=== PATIENT | male | born 1995 | race African-American/Black ===

== ENCOUNTER 2017-04-30 19:54 | Emergency (ER) | payer OTHER ==
[2017-04-30 20:06] VITALS: BP 156/86; PULSE 97; RESP 18; TEMP 98.3
--- NOTE | 2017-04-30 21:11 | ED ---
General Adult HPI - General Chief complaint: Recheck/Abnormal Lab/Rx Stated complaint: wants allergy Rx Time Seen by Provider: 04/30/17 20:39 Source: patient, RN notes reviewed, old records reviewed Mode of arrival: ambulatory Limitations: no limitations - History of Present Illness Initial comments: This is a 22 year old male with CC of needing allergy medication. Patient reports that he has been taking Claritin but it has not been working. He does not use nasal sprays. Patient reports he has itchy eyes, and nasal drainage. Patient denies any fever or chills. Denies any nausea, vomiting, chest pain, shortness of breath, abdominal pain. - Related Data Previous Rx's Medication Instructions Recorded Loratadine [Claritin] 10 mg PO DAILY #30 tab 05/27/15 guaiFENesin SYRUP 100MG/5ML 100 mg PO Q6HR PRN #1 bottle 05/27/15 [Robitussin] Fexofenadine HCl 180 mg PO DAILY #20 tablet 04/30/17 Fluticasone Nasal [place] [Flonase 1 spray EA NOSTRIL DAILY #1 bottle 04/30/17 Nasal [place]] Loratadine [Claritin] 10 mg PO DAILY #20 tab 04/30/17 Allergies Allergy/AdvReac Type Severity Reaction Status Date / Time No Known Allergies Allergy Verified 04/30/17 20:06 Review of Systems ROS Statement: Those systems with pertinent positive or pertinent negative responses have been documented in the HPI. ROS Other: All systems not noted in ROS Statement are negative. Past Medical History Past Medical History: No Reported History History of Any Multi-Drug Resistant Organisms: None Reported Past Surgical History: No Surgical Hx Reported Past Psychological History: No Psychological Hx Reported Smoking Status: Never smoker Past Alcohol Use History: None Reported Past Drug Use History: None Reported General Exam - General Exam Comments Initial Comments: This is a 22 year old male. Patient does not appear to be in any acute distress. Limitations: no limitations General appearance: alert, in no apparent distress Head exam: Present: atraumatic, normocephalic, normal inspection Eye exam: Present: normal appearance, PERRL, EOMI. Absent: scleral icterus, conjunctival injection, periorbital swelling ENT exam: Present: normal exam, mucous membranes moist, other (erythematous nasal turbinates. ) Neck exam: Present: normal inspection. Absent: tenderness, meningismus, lymphadenopathy Respiratory exam: Present: normal lung sounds bilaterally. Absent: respiratory distress, wheezes, rales, rhonchi, stridor Cardiovascular Exam: Present: regular rate, normal rhythm, normal heart sounds. Absent: systolic murmur, diastolic murmur, rubs, gallop, clicks GI/Abdominal exam: Present: soft, normal bowel sounds. Absent: distended, tenderness, guarding, rebound, rigid Extremities exam: Present: normal inspection, full ROM, normal capillary refill. Absent: tenderness, pedal edema, joint swelling, calf tenderness Back exam: Present: normal inspection Neurological exam: Present: alert, oriented X3, CN II-XII intact Psychiatric exam: Present: normal affect, normal mood Skin exam: Present: warm, dry, intact, normal color. Absent: rash Course Vital Signs 04/30/17 20:03 Temperature 98.3 F Pulse Rate 97 Respiratory 18 Rate Blood Pressure 156/86 O2 Sat by Pulse 98 Oximetry Medical Decision Making - Medical Decision Making This is a 22 year old male with CC of needing allergy medication refill. Patient reports that he has been taking Claritin but it has not been working. He does not use nasal sprays. Patient reports he has itchy eyes, and nasal drainage. Patient has erythematous nasal turbinates. Vital signs are within normal limits. Lungs are clear. Patient will be started on Claritin D and also written for generic Glory. Discussed that patient needs to be on fluticasone nasal spray as well. Patient advised to monitor for fever, or any alarming signs or symptoms. Disposition Clinical Impression: Seasonal allergies Disposition: HOME SELF-CARE Condition: Good Instructions: Allergies (ED) Additional Instructions: Patient advised to alternate between the loratadine fexofenadine prescription. Use the nasal spray. Return to the emergency department if any alarming signs or symptoms occur. Prescriptions: Fexofenadine HCl 180 mg PO DAILY #20 tablet Fluticasone Nasal [place] [Flonase Nasal [place]] 1 spray EA NOSTRIL DAILY #1 bottle Loratadine [Claritin] 10 mg PO DAILY #20 tab Referrals: Marin Espinoza MD [Primary Care Provider] - 1-2 days Time of Disposition: 21:09
== END 2017-04-30 21:10 | disposition home or self-care (01) ==
LOC: EC 19:54
DX: J30.2 Other seasonal allergic rhinitis (principal); Z76.0 Encounter for issue of repeat prescription
CPT/HCPCS: 99282

== ENCOUNTER 2017-08-13 19:24 | Emergency (ER) | payer OTHER ==
[2017-08-13] MEDS ORDERED: SODIUM CHLORIDE 0.9% 1,000 ML IV STA ×2 (19:40→20:53)
[2017-08-13] MEDS ORDERED: ONDANSETRON 4 MG/2 ML VIAL IVP STA ×2 (19:40→20:53)
--- NOTE | 2017-08-13 19:46 | ED ---
General Adult HPI - General Chief complaint: Abdominal Pain Stated complaint: Abd Pain Time Seen by Provider: 08/13/17 19:34 Source: patient, RN notes reviewed Mode of arrival: ambulatory Limitations: no limitations - History of Present Illness Initial comments: This is a 22-year-old male who presents to the emergency department with chief complaint of abdominal pain. Patient states that yesterday he had generalized body aches. He reports that at approximately 12:00/1:00 this afternoon he began to have abdominal pain. He states that the pain was a dull ache in his perimbilical region and has since migrated to the left. He states that the dull pain is constant with intermittent sharp pains. Patient states that he has also been experiencing nausea and diarrhea, however has not had any episodes of vomiting. He states that he has been able to keep down fluids throughout the day. Patient states that he has also felt alternating periods of warm and cold. He denies any sick contacts. Patient denies any medical problems, ALLERGIES or surgeries. Denies chest pain, shortness of breath, vomiting, constipation, dysuria or hematuria, numbness or tingling, headache or vision changes. - Related Data Home Medications Medication Instructions Recorded Confirmed Fluticasone Nasal [place] [Flonase 1 spray EA NOSTRIL DAILY PRN 08/13/17 08/13/17 Nasal [place]] Loratadine [Claritin] 10 mg PO DAILY PRN 08/13/17 08/13/17 Allergies Allergy/AdvReac Type Severity Reaction Status Date / Time No Known Allergies Allergy Verified 08/13/17 19:47 Review of Systems ROS Statement: Those systems with pertinent positive or pertinent negative responses have been documented in the HPI. ROS Other: All systems not noted in ROS Statement are negative. Past Medical History Past Medical History: No Reported History History of Any Multi-Drug Resistant Organisms: None Reported Past Surgical History: No Surgical Hx Reported Past Psychological History: No Psychological Hx Reported Smoking Status: Never smoker Past Alcohol Use History: None Reported Past Drug Use History: None Reported General Exam - General Exam Comments Initial Comments: General: Awake and alert, well-developed; in no apparent distress. HEENT: Head atraumatic, normocephalic. Pupils are equal, round and reactive to light. Extraocular movements intact. Oropharynx moist without erythema or exudate. Neck: Supple. Normal ROM. Cardiovascular: Regular rate and rhythm. No murmurs, rubs or gallops. Chest symmetrical. Respiratory: Lungs clear to auscultation bilaterally. No wheezes, rales or rhonchi. Normal respiratory effort with no use of accessory muscles. Abdomen: Soft, non-distended. Mild tenderness on palpation of periumbilical region. No rigidity, rebound or guarding. Normal bowel sounds in all 4 quadrants. Musculoskeletal: Normal ROM, no tenderness bilateral upper and lower extremities. Ambulating normally. Skin: [place], warm and dry without rashes or lesions. Neurological: Alert and oriented x3. CN II-XII grossly intact. Speech is fluent and answers are appropriate. No focal neuro deficits. Psychiatric: Normal mood and affect. No overt signs of depression or anxiety noted. Limitations: no limitations Course Vital Signs 08/13/17 08/13/17 19:29 20:53 Temperature 99.2 F Pulse Rate 89 90 Respiratory 20 18 Rate Blood Pressure 137/76 116/53 O2 Sat by Pulse 100 100 Oximetry Medical Decision Making - Medical Decision Making This is a 22-year-old male who presents to the emergency department with chief complaint of abdominal pain. Patient does not appear to be acutely ill. On presentation, vital signs are stable with a slightly elevated temperature of 99.2. X-ray abdomen revealed an overall non-obstructive bowel gas pattern, however small air-fluid levels in the right colon could represent ileus or enteritis. Patient initially refused blood work and IV line. After educating patient that we will have a better picture of his diagnosis with blood work, patient agreed. Patient has slight increase in his white count at 12.3 with a left shift. Patient has slightly elevated liver enzymes with an ALT of 86 and alkaline phosphatase of 127. Patient denied having any abdominal pain in the right lower quadrant or right upper quadrant. On reexamination patient states that he feels significantly better. He states that his nausea has dissipated and on palpation of his abdomen he denies any tenderness. Recommended CT of abdomen as the next step in management. Patient states that he will return to the emergency department if symptoms should worsen. No computed tomography scan will be performed at this time. Patient is in no acute distress. Vitals were repeated and current temperature is 98.8. All other vitals are stable. Patient will be discharged home. He is in agreement with [facility] understanding. All questions were answered. - Lab Data Result diagrams: 08/13/17 20:52 08/13/17 20:52 Lab Results 08/13/17 08/13/17 08/13/17 Range/Units 20:52 20:52 21:41 WBC 12.3 H (4.0-11.0) k/uL RBC 5.58 (4.30-5.90) m/uL Hgb 14.8 (13.0-17.5) gm/dL Hct 44.2 (39.0-53.0) % MCV 79.2 L (80.0-100.0) fL MCH 26.4 (25.0-35.0) pg MCHC 33.4 (31.0-37.0) g/dL RDW 13.5 (11.5-15.5) % Plt Count 284 (150-450) k/uL Neutrophils % 84 % Lymphocytes % 11 % Monocytes % 3 % Eosinophils % 1 % Basophils % 0 % Neutrophils # 10.3 H (1.3-7.7) k/uL Lymphocytes # 1.3 (1.0-4.8) k/uL Monocytes # 0.4 (0-1.0) k/uL Eosinophils # 0.1 (0-0.7) k/uL Basophils # 0.0 (0-0.2) k/uL Sodium 139 (137-145) mmol/L Potassium 4.3 (3.5-5.1) mmol/L Chloride 100 (98-107) mmol/L Carbon Dioxide 25 (22-30) mmol/L Anion Gap 14 mmol/L BUN 14 (9-20) mg/dL Creatinine 1.00 (0.66-1.25) mg/dL Est GFR (MDRD) Af Amer >60 (>60 ml/min/1.73 sqM) Est GFR (MDRD) Non-Af >60 (>60 ml/min/1.73 sqM) Glucose 93 (74-99) mg/dL Calcium 10.1 (8.4-10.2) mg/dL Total Bilirubin 0.8 (0.2-1.3) mg/dL AST 45 (17-59) U/L ALT 86 H (21-72) U/L Alkaline Phosphatase 127 H (38-126) U/L Total Protein 8.5 H (6.3-8.2) g/dL Albumin 4.7 (3.5-5.0) g/dL Amylase 49 (30-110) U/L Lipase 59 (23-300) U/L Urine Color Yellow Urine Appearance Clear (Clear) Urine pH 7.0 (5.0-8.0) Ur Specific [place] 1.026 (1.001-1.035) Urine Protein 1+ H (Negative) Urine Glucose (UA) Negative (Negative) Urine Ketones Negative (Negative) Urine Blood Negative (Negative) Urine Nitrite Negative (Negative) Urine Bilirubin Negative (Negative) Urine Urobilinogen 6.0 (<2.0) mg/dL Ur Leukocyte Esterase Negative (Negative) Urine RBC 1 (0-5) /hpf Urine WBC 1 (0-5) /hpf Ur Squamous Epith Cells <1 (0-4) /hpf Urine Mucus Few H (None) /hpf - Radiology Data Radiology results: report reviewed X-ray KUB impression: Overall nonobstructive bowel gas pattern. Small air- fluid levels in the right hemicolon could represent a regional ileus or enteritis Disposition Clinical Impression: Abdominal pain, Nausea Disposition: HOME SELF-CARE Condition: Good Instructions: Abdominal Pain (ED) Additional Instructions: Please follow up with primary care provider within 1-2 days. Return to emergency department if symptoms should worsen or any concerns arise. Referrals: Marin Espinoza MD [Primary Care Provider] - 1-2 days Time of Disposition: 22:09
--- NOTE | 2017-08-13 20:30 | XR ---
EXAMINATION TYPE: XR KUB DATE OF EXAM: 08/13/2017 CLINICAL DATA: 22-year-old male with abdominal pain, [facility] COMPARISON: None FINDINGS: Lung bases are clear. No evidence for free intraperitoneal air. Small air-fluid levels are present in the right hemicolon. No dilated bowel loops seen are differenti al air-fluid levels. Some air is present within the rectum. No significant stool burden. No suspicious calcifications. IMPRESSION: Overall nonobstructive bowel gas pattern. Small air-fluid levels in the right hemicolon could represe nt a regional ileus or enteritis.
[2017-08-13 20:55] VITALS: RESP 18
[2017-08-13 21:01] LABS: Basophils % (A) 0 %; CH 27.1; CHCM 34.4; Eosinophils # (A) 0.1 k/uL (0-0.7); Eosinophils % (A) 1 %; HCT 44.2 % (39.0-53.0); HDW 2.89; HGB 14.8 gm/dL (13.0-17.5); Luc # (Auto) 0.14; Luc % (Auto) 1; Lymphocytes # (A) 1.3 k/uL (1.0-4.8); Lymphocytes % (A) 11 %; MCH 26.4 pg (25.0-35.0); MCHC 33.4 g/dL (31.0-37.0); MCV 79.2 fL (80.0-100.0); Monocytes # (A) 0.4 k/uL (0-1.0); Monocytes % (A) 3 %; Neutrophils # (A) 10.3 k/uL (1.3-7.7); Neutrophils % (A) 84 %; RBC 5.58 m/uL (4.30-5.90); RDW 13.5 % (11.5-15.5); WBC 12.3 k/uL (4.0-11.0); WBC (Perox) 11.33
[2017-08-13 21:11] LABS: ALT 86 U/L (21-72); AST 45 U/L (17-59); Alkaline Phosphatase 127 U/L (38-126); Amylase 49 U/L (30-110); Anion Gap 14 mmol/L; Blood Urea Nitrogen 14 mg/dL (9-20); Calcium 10.1 mg/dL (8.4-10.2); Carbon Dioxide 25 mmol/L (22-30); Chloride 100 mmol/L (98-107); Glucose 93 mg/dL (74-99); Non-African American GFR(MDRD) >60 (>60 ml/min/1.73 sqM); Potassium 4.3 mmol/L (3.5-5.1); Sodium 139 mmol/L (137-145); Total Bilirubin 0.8 mg/dL (0.2-1.3); Total Protein 8.5 g/dL (6.3-8.2)
[2017-08-13 21:56] LABS: Appearance,Urine Clear (Clear); Bilirubin,Urine Negative (Negative); Glucose,Urine (UA) Negative (Negative); Ketones,Urine Negative (Negative); Leukocyte Esterase,Urine Negative (Negative); Mucus,Urine Few /hpf; Nitrite,Urine Negative (Negative); Particle Count 3790; Protein,Urine 1+ (Negative); RBC,Urine 1 /hpf (0-5); Specific Gravity,Urine 1.026 (1.001-1.035); Squamous Epithelial Cell,Urine <1 /hpf (0-4); UA Billing (MACRO vs. MICRO) MICRO; WBC,Urine 1 /hpf (0-5)
[2017-08-13 22:06] VITALS: BP 113/61; PULSE 100; TEMP 98.8
== END 2017-08-13 22:15 | disposition home or self-care (01) ==
LOC: EC 19:24
DX: R10.33 Periumbilical pain (principal); R11.0 Nausea; R19.7 Diarrhea, unspecified
CPT/HCPCS: 36415; 80053; 82150; 83690; 85025; 81001; 87086; 74000; 99284; 96374; 96361; J2405